=== PATIENT | female | born 1925 | race Caucasian/White ===

== ENCOUNTER 2017-01-11 09:27 | Inpatient (IN) | payer MEDICARE, BC ==
[~2017-01-11] VITALS: Ht 152.4 cm; Wt 59.6 kg
[2017-01-11] VITALS (12 sets, daily range): BP systolic 115–144; BP diastolic 57–74; PULSE 69–89; RESP 16–20; TEMP 96.9–98.9; O2SAT 80–100
[~2017-01-11 09:27] MED LIST: CARA1TAB2 PO; HYZA100T6 PO; PROT40TA PO; SIMV40TA PO; SYNT50TA PO
[2017-01-11 10:16] LABS: AUTOMATED NEUTROPHIL # 1.9 TH/MM3 (1.8-7.7); BASOPHIL % 0.5 % (0.0-2.0); EOSINOPHIL % 1.1 % (0.0-4.0); LYMPH % 26.4 % (9.0-44.0); LYMPHOCYTE # 0.8 TH/MM3 (1.0-4.8); MEAN CELL VOLUME 82.1 FL (80.0-100.0); MEAN CORPUSCULAR HEMOGLOBIN 26.1 PG (27.0-34.0); MEAN CORPUSCULAR HGB CONC 31.8 % (32.0-36.0); MONO % 10.1 % (0.0-8.0); NEUT % 61.9 % (16.0-70.0); PLATELET COUNT 147 TH/MM3 (150-450); RED BLOOD COUNT 2.05 MIL/MM3 (4.00-5.30); RED CELL DISTRIBUTION WIDTH 17.1 % (11.6-17.2); WHITE BLOOD COUNT 3.1 TH/MM3 (4.0-11.0)
--- NOTE | 2017-01-11 10:16 | PD ---
HPI Chief Complaint: Abnormal Results Time Seen by Provider: 09:37 Travel History International Travel<30 days: No Contact w/Intl Traveler<30days: No Traveled to known affect area: No History of Present Illness HPI 89 y/o female states she had an outpatient lab that showed her hemoglobin was 5. Her family states that she wasn't acting right and was concerned that her counts were low and this is why they had it checked. The patient denies any bleeding or history of bleeding. She denies any active complaints at this time. History is supplemented by records and family but limited. PFSH Past Medical History Cancer: No Cardiovascular Problems: Yes High Cholesterol: Yes Cerebrovascular Accident: Yes Endocrine: No Genitourinary: No Hypertension: Yes Immune Disorder: No Musculoskeletal: No Neurologic: No Psychiatric: No Reproductive: No Respiratory: No Tetanus Vaccination: Never Vaccinated Influenza Vaccination: No ?: Not Menopausal: Yes Past Surgical History Surgical History: No Previous Surgery Pacemaker: Yes Social History Alcohol Use: No Tobacco Use: No Substance Use: No Allergies-Medications (Allergen,Severity, Reaction): Coded Allergies: No Known Allergies (Unverified , 01/11/17) Reported Meds & Prescriptions Reported Meds & Active Scripts Active Reported Centrum Silver Women Tablet (Multivit-Min/Iron/Folic/Lutein) 1 Each Tablet 1 Tab PO DAILY Ecotrin Regular Strength (Aspirin) 325 Mg Tabdr 325 Mg PO DAILY PRN Zocor (Simvastatin) 20 Mg Tab 20 Mg PO HS Cozaar (Losartan Potassium) 25 Mg Tab 25 Mg PO DAILY Hyzaar (Losartan-Hydrochlorothiazide) 100-25 Mg Tab 1 Tab PO DAILY Levothyroxine (Levothyroxine Sodium) 50 Mcg Tab 50 Mcg PO DAILY Lopressor (Metoprolol Tartrate) 50 Mg Tab 50 Mg PO BID Review of Systems Except as stated in HPI: all other systems reviewed are Neg Physical Exam Narrative GENERAL: Well-nourished, well-developed patient. SKIN: Warm and dry. HEAD: Normocephalic and atraumatic. EYES: No injection or drainage. ENT: No nasal drainage noted. NECK: Supple, trachea midline. CARDIOVASCULAR: Regular rate and rhythm RESPIRATORY: No increased effort. No accessory muscle use. GASTROINTESTINAL: Abdomen soft, non-tender, nondistended. RECTAL EXAM: Performed with death clearance coordinator and after permission. No thrombosed external hemorrhoid or fissure, stool is brown, non-bloody. NEUROLOGICAL: Awake. Moves extremities. Normal speech. Data Data Last Documented VS Vital Signs Date Time Temp Pulse Resp B/P (MAP) Pulse Ox O2 Delivery O2 Flow Rate FiO2 01/11/17 09:42 77 17 130/60 (83) 100 Room Air 01/11/17 09:37 01/11/17 09:28 97.8 Orders Orders Red Blood Cells (Rbc) (01/11/17 09:37) Complete Blood Count With Diff (01/11/17 09:37) Basic Metabolic Panel (Bmp) (01/11/17 09:37) Act Partial Throm Time (Ptt) (01/11/17 09:37) Prothrombin Time / Inr (Pt) (01/11/17 09:37) Iv Access Insert/Monitor (01/11/17 09:37) Ecg Monitoring (01/11/17 09:37) Oximetry (01/11/17 09:37) Type And Screen (01/11/17 09:37) Electrocardiogram (01/11/17 ) Pantoprazole Inj (Protonix Inj) (01/11/17 10:30) Blood Product Administration .UPON TRANSFUSION (01/11/17 10:21) Sodium Chlor 0.9% 250 Ml Inj (Ns 250 Ml (01/11/17 10:30) Admit Order (Ed Use Only) (01/11/17 10:42) Labs Laboratory Tests Test 01/11/17 09:45 White Blood Count 3.1 TH/MM3 Red Blood Count 2.05 MIL/MM3 Hemoglobin 5.4 GM/DL Hematocrit 16.9 % Mean Corpuscular Volume 82.1 FL Mean Corpuscular Hemoglobin 26.1 PG Mean Corpuscular Hemoglobin Concent 31.8 % Red Cell Distribution Width 17.1 % Platelet Count 147 TH/MM3 Mean Platelet Volume 8.3 FL Neutrophils (%) (Auto) 61.9 % Lymphocytes (%) (Auto) 26.4 % Monocytes (%) (Auto) 10.1 % Eosinophils (%) (Auto) 1.1 % Basophils (%) (Auto) 0.5 % Neutrophils # (Auto) 1.9 TH/MM3 Lymphocytes # (Auto) 0.8 TH/MM3 Monocytes # (Auto) 0.3 TH/MM3 Eosinophils # (Auto) 0.0 TH/MM3 Basophils # (Auto) 0.0 TH/MM3 CBC Comment DIFF FINAL Differential Comment Prothrombin Time 10.7 SEC Prothromb Time International Ratio 1.0 RATIO Activated Partial Thromboplast Time 25.2 SEC Blood Urea Nitrogen 37 MG/DL Creatinine 1.46 MG/DL Random Glucose 137 MG/DL Calcium Level 8.8 MG/DL Sodium Level 139 MEQ/L Potassium Level 3.7 MEQ/L Chloride Level 106 MEQ/L Carbon Dioxide Level 23.6 MEQ/L Anion Gap 9 MEQ/L Estimat Glomerular Filtration Rate 34 ML/MIN MDM Medical Decision Making Medical Screen Exam Complete: Yes Emergency Medical Condition: Yes Medical Record Reviewed: Yes (past history confirmed, prior anemia and GI bleed visit noted with colon Lesion and path reviewed and noted) Interpretation(s) CBC & BMP Diagram 01/11/17 09:45 Calcium Level 8.8 Differential Diagnosis Gastritis, lab error, anemia Narrative Course Will check blood work and dose with Protonix and reevaluate Labs confirm anemia, will place for transfusion and admit [facility] Point of Care Internal Pos. & Neg. Controls: Passed Fecal Specimen Occult Blood: Positive Physician Communication Physician Communication dr ralph agrees to admit Diagnosis Primary Impression: Anemia Qualified Codes: D64.9 - Anemia, unspecified Additional Impression: GIB (gastrointestinal bleeding) Qualified Codes: K92.2 - Gastrointestinal hemorrhage, unspecified Admitting Information Admitting Physician Requests: Admit Glory Richard MD Jan 11, 2017 10:16
[2017-01-11 10:17] LABS: HEMO FLAGS DIFF FINAL
[2017-01-11 10:19] LABS: HEMATOCRIT 16.9 % (35.0-46.0)
[2017-01-11 10:22] LABS: APTT (PATIENT) 25.2 SEC (24.3-30.1); PROTHROMBIN TIME - PATIENT 10.7 SEC (9.8-11.6)
[2017-01-11] MEDS ORDERED: PANTOPRAZOLE SODIUM 40 MG VIAL IV PUSH ONE (10:30)
[2017-01-11] MEDS ORDERED: SODIUM CHLOR 0.9% 250 ML INJ 250 ML IV ONE (10:30)
[2017-01-11 10:35] LABS: BICARBONATE 23.6 MEQ/L (21.0-32.0); POTASSIUM 3.7 MEQ/L (3.5-5.1)
[2017-01-11] MEDS ORDERED: METO-309 PO (10:55)
[2017-01-11] MEDS ORDERED: HYZA100T6 PO (10:55)
[2017-01-11] MEDS ORDERED: MULT1TAB61 PO (10:55)
[2017-01-11] MEDS ORDERED: ZOCO20TA PO (10:55)
[2017-01-11] MEDS ORDERED: ASPI-146 PO (10:55)
[2017-01-11] MEDS ORDERED: COZA25TA PO (10:55)
[2017-01-11] MEDS ORDERED: LEVO50TA4 PO (10:55)
[2017-01-11] MEDS: SODIUM CHLOR 0.9% 1000 ML INJ 1,000 ML IV SCH ×2 (12:00→23:55)
--- NOTE | 2017-01-11 12:29 | PD.CONS ---
HPI History of Present Illness This is a 89 year old female who was sent to the ER for severe anemia with hemoglobin of 5 as outpatient. She has a significant family history for cancer - colon cancer in her brother and sister and another sister with breast cancer. She was seen for anemia in 2013 and evaluated with EGD/colonoscopy on (2013) and this revealed polyp in the gastric body, status post snare polypectomy , large polyp 5 cm or more, multilobed polyp in the proximal transverse colon, status post partial polypectomy with hot snare. Pathology revealed gastric antral mucosal biopsy with foveolar hyperplastic polyp, focal superficial erosion with polypoid granulation tissue and mild chronic active gastritis negative for intestinal metaplasia and dysplasia, stainer stain negative for Helicobacter. Benign acutely inflamed and fragmented villoglandular polyp in the transverse colon. She was then hospitalized in January of 2016 for severe anemia and was then evaluated with colonoscopy (02/01/16)----> diverticulum in the sigmoid colon, one-third circumferential mass was found in the transverse colon, multiple biopsies of the lesion were performed. 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 She has not since been seen in the office. The patient tells me that during her last hospitalization, she was told that she had a colon mass and that she did not want any surgery for this. She has not followed up with our office since her last hospitalization. She reports that she has been doing well with no decreased appetite, weight loss, nausea, vomiting, abdominal pain, change in bowels, constipation, diarrhea, melena, or hematochezia. She reports that she is moving her bowels without difficulty. She has been more tired than usual for 2 days and has been having leg cramps for the past 2 weeks. Discussed with patient further evaluation with EGD/Colonoscopy and the patient is refusing any further workup or treatment - other than blood transfusions. Discussed with patient and family concern that the bleeding could be coming from the colon mass or from her stomach. The patient verbalizes understanding but states she does not want to even have a procedure to control the bleeding and that she does not want any treatment of her colon mass. She is also interested in obtaining a DNR status and states that she does not want CPR or to be on the ventilator should her heart stop or if she stopped breathing. (Debbie Benoit) PFSH Past Medical History Anemia Gastric polyps Colon polyps Colon mass Hypertension Hyperlipidemia Hypothyroidism History of CVA Past Surgical History EGD/colonoscopy (Debbie Benoit) Coded Allergies: No Known Allergies (Unverified , 01/11/17) Medications Allergies Coded Allergies Type Severity Reaction Last Updated Verified No Known Allergies 01/11/17 No Active Scripts Medications Dose Route/Sig Max Daily Dose Days Date Category Centrum Silver Women Tablet (Multivit-Min/Iron/Folic/Lutein) 1 Each Tablet 1 Tab PO DAILY 01/11/17 Reported Ecotrin Regular Strength (Aspirin) 325 Mg Tabdr 325 Mg PO DAILY PRN 01/11/17 Reported Zocor (Simvastatin) 20 Mg Tab 20 Mg PO HS 01/11/17 Reported Cozaar (Losartan Potassium) 25 Mg Tab 25 Mg PO DAILY 01/11/17 Reported Hyzaar (Losartan-Hydrochlorothiazide) 100-25 Mg Tab 1 Tab PO DAILY 01/11/17 Reported Levothyroxine (Levothyroxine Sodium) 50 Mcg Tab 50 Mcg PO DAILY 01/11/17 Reported Lopressor (Metoprolol Tartrate) 50 Mg Tab 50 Mg PO BID 01/11/17 Reported Family History Mother from leukemia Father had a CVA Brother colon cancer Sister colon cancer Another sister breast cancer Social History No history of tobacco, illicit drug use, alcohol (Debbie Benoit) Review of Systems Constitutional: COMPLAINS OF: Fatigue, DENIES: Fever, Weight loss, Chills, Change in appetite Respiratory: DENIES: Cough, Shortness of breath Cardiovascular: DENIES: Chest pain, Palpitations Gastrointestinal: DENIES: Abdominal pain, Black stools, Bloody stools, Constipation, Diarrhea, Nausea, Vomiting, Anorexia, Swelling of Abdomen Musculoskeletal: COMPLAINS OF: Muscle aches Hematologic/lymphatic: DENIES: Bruising Neurologic: DENIES: Headache Psychiatric: DENIES: Confusion (Debbie Benoit) GI Exam Vitals I&O Vital Signs Date Time Temp Pulse Resp B/P (MAP) Pulse Ox O2 Delivery O2 Flow Rate FiO2 01/11/17 12:07 98.3 74 16 115/57 100 01/11/17 09:42 77 17 130/60 (83) 100 Room Air 01/11/17 09:41 100 Room Air 01/11/17 09:37 Room Air 01/11/17 09:28 97.8 78 20 136/58 (84) 100 Room Air Laboratory Test 01/11/17 09:45 White Blood Count 3.1 TH/MM3 Red Blood Count 2.05 MIL/MM3 Hemoglobin 5.4 GM/DL Hematocrit 16.9 % Mean Corpuscular Volume 82.1 FL Mean Corpuscular Hemoglobin 26.1 PG Mean Corpuscular Hemoglobin Concent 31.8 % Red Cell Distribution Width 17.1 % Platelet Count 147 TH/MM3 Mean Platelet Volume 8.3 FL Neutrophils (%) (Auto) 61.9 % Lymphocytes (%) (Auto) 26.4 % Monocytes (%) (Auto) 10.1 % Eosinophils (%) (Auto) 1.1 % Basophils (%) (Auto) 0.5 % Neutrophils # (Auto) 1.9 TH/MM3 Lymphocytes # (Auto) 0.8 TH/MM3 Monocytes # (Auto) 0.3 TH/MM3 Eosinophils # (Auto) 0.0 TH/MM3 Basophils # (Auto) 0.0 TH/MM3 CBC Comment DIFF FINAL Differential Comment Prothrombin Time 10.7 SEC Prothromb Time International Ratio 1.0 RATIO Activated Partial Thromboplast Time 25.2 SEC Blood Urea Nitrogen 37 MG/DL Creatinine 1.46 MG/DL Random Glucose 137 MG/DL Calcium Level 8.8 MG/DL Sodium Level 139 MEQ/L Potassium Level 3.7 MEQ/L Chloride Level 106 MEQ/L Carbon Dioxide Level 23.6 MEQ/L Anion Gap 9 MEQ/L Estimat Glomerular Filtration Rate 34 ML/MIN Physical Examination HEENT: Normocephalic; atraumatic; no jaundice. CHEST: CTA CARDIAC: RRR, systolic murmur ABDOMEN: Soft, nondistended, nontender; no hepatosplenomegaly; bowel sounds are present in all four quadrants. EXTREMITIES: No clubbing, cyanosis, or edema. SKIN: Generalized pallor SCI[employer] EDITOR: No focal deficits; alert and oriented times three. (Debbie Benoit) Assessment and Plan Plan ASSESSMENT: - Severe anemia in patient with known colon mass. Pt has been evaluated for anemia in past. EGD/colonoscopy on (10/21/2013) and this revealed polyp in the gastric body, status post snare polypectomy, large polyp 5 cm or more, multilobed polyp in the proximal transverse colon, status post partial polypectomy with hot snare. Pathology revealed gastric antral mucosal biopsy with foveolar hyperplastic polyp, focal superficial erosion with polypoid granulation tissue and mild chronic active gastritis negative for intestinal metaplasia and dysplasia, stainer stain negative for Helicobacter. Benign acutely inflamed and fragmented villoglandular polyp in the transverse colon. She was then hospitalized in January of 2016 for severe anemia and was then evaluated with colonoscopy (02/01/16)----> diverticulum in the sigmoid colon, one-third circumferential mass was found in the transverse colon, multiple biopsies of the lesion were performed. 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 She has not since been seen in the office. The patient tells me that during her last hospitalization, she was told that she had a colon mass and that she did not want any surgery for this. She has not followed up with our office since her last hospitalization. She is asymptomatic other than generalized weakness and leg cramps. She has not seen blood loss and is moving her bowels without difficulty. Refusing any further workup or treatment other than blood transfusions. Long discussion with family and patient. She does not want egd/colonoscopy and would like to made a DNR- states no CPR or mechanical ventilation. PPI, Transfuse. - Colon mass noted on last colonoscopy- did not want further workup or treatment. Suspicious for metastatic gastric vs. primary colon cancer. - FHx cancer. brother and sister with colon cancer. sister with breast cancer. - Hx CVA, HTN, Hyperlipidemia, hypothyroidism. PLAN: - Clear liquids - Agree with transfusion - PPI - DNR per patient and family request - Pt and family do not want to proceed further workup or treatment other than blood transfusion - PT seen and examined by Dr. Zhao and myself and this note is written on his behalf (Debbie Benoit) Physician Comments Seen and examined, plan as above, will follow up clinically after the transfusion. (Gonzales Zhao MD) Debbie Benoit Jan 11, 2017 12:29 Gonzales Zhao MD Jan 11, 2017 16:05
[2017-01-11 14:01] LABS: REVIEW FLAG FINAL
--- NOTE | 2017-01-11 14:47 | HHI.HP ---
HPI Service [facility] Primary Care Physician Channing Land DO Admission Diagnosis anemia Diagnoses: Chief Complaint: Fatigue Travel History International Travel<30 Days: No Contact w/Intl Traveler <30 Da: No Traveled to Known Affected Are: No History of Present Illness This is a pleasant 89-year-old elderly white female with significant past medical history of CVA, hypertension, hyperlipidemia, prior GI bleed. Patient indicates that on Monday she was feeling shaky and tremulous and family was concerned that her blood counts were not up therefore they called her PCP and outpatient lab work was ordered. Today, she was found with a hemoglobin of 5 and was sent to the hospital for further evaluation. Patient denies any chest pain, no shortness of breath. No recent fever, no chills. No blood in the stool, no hematemesis. Appetite has been okay, no nausea, no vomiting. She denies taking any aspirin. The emergency room, laboratory workup was done, she was found with hemoglobin of 5.4, hematocrit of 16.9. Platelets 147. Creatinine elevated 1.46, BUN 37. Hemoccult was positive. Patient is in the process of receiving blood. Patient has been admitted before for GI bleed, the last time was in 2016. Results show diverticulitis;, one third circumferential mass was found in the transverse colon, multiple biopsies of the lesion were performed. 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 She has been evaluated by gastroenterology and they have talked to pt and family. At this time they are refusing any further workup or treatment other than the blood transfusion. The family and patient were explained that the bleeding could be coming from a colon mass or from her stomach however at this time they would not agree to even have a procedure to control bleeding or to have treatment for the colon mass. Patient also requested a DO NOT RESUSCITATE. At this time, patient is resting comfortably, she has no complaints at this time. Patient is admitted for further evaluation and treatment. Review of Systems Constitutional: COMPLAINS OF: Fatigue, DENIES: Diaphoretic episodes, Fever, Weight gain, Weight loss, Chills, Dizziness, Change in appetite, Night Sweats Endocrine: DENIES: Abnorml menstrual pattern, Heat/cold intolerance, Polydipsia , Polyuria, Polyphagia Eyes: DENIES: Blurred vision, Diplopia, Eye inflammation, Eye pain, Vision loss , Photosensitivity, Double Vision Ears, nose, mouth, throat: DENIES: Tinnitus, Hearing loss, Vertigo, Nasal discharge, Oral lesions, Throat pain, Hoarseness, Ear Pain, Running Nose, Epistaxis, Sinus Pain, Toothache, Odynophagia Respiratory: DENIES: Apneas, Cough, Snoring, Wheezing, Hemoptysis, Sputum production, Shortness of breath Cardiovascular: DENIES: Chest pain, Palpitations, Syncope, Dyspnea on Exertion , PND, Lower Extremity Edema, Orthopnea, Claudication Gastrointestinal: DENIES: Abdominal pain, Black stools, Bloody stools, Constipation, Diarrhea, Nausea, Vomiting, Difficulty Swallowing, Anorexia Genitourinary: DENIES: Abnormal vaginal bleeding, Dysmenorrhea, Dyspareunia, Sexual dysfunction, Urinary frequency, Urinary incontinence, Urgency, Hematuria , Dysuria, Nocturia, Vaginal discharge Musculoskeletal: DENIES: Joint pain, Muscle aches, Stiffness, Joint Swelling, Back pain, Neck pain Integumentary: DENIES: Abnormal pigmentation, Pruritus, Rash, Nail changes, Breast masses, Breast skin changes, Nipple discharge Hematologic/lymphatic: DENIES: Bruising, Lymphadenopathy Immunologic/allergic: DENIES: Eczema, Urticaria Neurologic: DENIES: Abnormal gait, Headache, Localized weakness, Paresthesias, Seizures, Speech Problems, Tremor, Poor Balance Psychiatric: DENIES: Anxiety, Confusion, Mood changes, Depression, Hallucinations, Agitation, Suicidal Ideation, Homicidal Ideation, Delusions Past Family Social History Past Medical History 1. Hypertension. 2. Hyperlipidemia. 3. Hypothyroidism. 4. Remote history of stroke. 5. Previous admissions for GI bleed, last time was in 2016, found with diverticular bleed. 6. Aortic stenosis, EF of 55-60% per echo in 2016 Past Surgical History EGD/Colonoscopy 2016 Reported Medications Reported Meds & Active Scripts Active Reported Centrum Silver Women Tablet (Multivit-Min/Iron/Folic/Lutein) 1 Each Tablet 1 Tab PO DAILY Ecotrin Regular Strength (Aspirin) 325 Mg Tabdr 325 Mg PO DAILY PRN Zocor (Simvastatin) 20 Mg Tab 20 Mg PO HS Cozaar (Losartan Potassium) 25 Mg Tab 25 Mg PO DAILY Hyzaar (Losartan-Hydrochlorothiazide) 100-25 Mg Tab 1 Tab PO DAILY Levothyroxine (Levothyroxine Sodium) 50 Mcg Tab 50 Mcg PO DAILY Lopressor (Metoprolol Tartrate) 50 Mg Tab 50 Mg PO BID Allergies: Coded Allergies: No Known Allergies (Unverified , 01/11/17) Active Ordered Medications Inpatient Medications Levothyroxine Sodium (Synthroid) 50 mcg DAILY@0600 PO ; Start 01/12/17 at 06:00 Losartan Potassium (Cozaar) 25 mg DAILY PO ; Start 01/12/17 at 09:00 Metoprolol Tartrate (Lopressor) 50 mg BID PO ; Start 01/11/17 at 21:00 Pantoprazole Sodium (Protonix Inj) 40 mg Q24H IV PUSH ; Start 01/12/17 at 11:00 Pravastatin Sodium (Pravachol) 40 mg HS PO ; Start 01/11/17 at 21:00 Sodium Chloride 1,000 ml @ 84 mls/hr [id number] IV ; Start 01/11/17 at 12:00 Family History Father from stroke at the age of 96. Mother of leukemia in her mid 60s. Social History Patient is a , lives with daughter and son-in-law No smoking, no alcohol, no substance abuse Physical Exam Vital Signs Vital Signs Date Time Temp Pulse Resp B/P (MAP) Pulse Ox O2 Delivery O2 Flow Rate FiO2 01/11/17 14:30 96.9 80 18 144/68 (93) 80 01/11/17 14:12 73 18 127/61 (83) 98 01/11/17 12:30 98.9 69 17 135/62 99 01/11/17 12:07 98.3 74 16 115/57 100 01/11/17 09:42 77 17 130/60 (83) 100 Room Air 01/11/17 09:41 100 Room Air 01/11/17 09:37 Room Air 01/11/17 09:28 97.8 78 20 136/58 (84) 100 Room Air Physical Exam GENERAL: This is a well-nourished, well-developed patient, in no apparent distress. SKIN: Skin pale: Dry. HEAD: Atraumatic. Normocephalic. No temporal or scalp tenderness. EYES: Pupils equal round and reactive. Extraocular motions intact. No scleral icterus. No injection or drainage. ENT: Nose without bleeding, purulent drainage or septal hematoma. Throat without erythema, tonsillar hypertrophy or exudate. Uvula midline. Airway patent. NECK: Trachea midline. No JVD or lymphadenopathy. Supple, nontender, no meningeal signs. CARDIOVASCULAR: S1 and S2, has a murmur, 2/6. No rubs, no gallops. RESPIRATORY: Clear to auscultation. Breath sounds equal bilaterally. No wheezes , rales, or rhonchi. GASTROINTESTINAL: Abdomen soft, non-tender, nondistended. No hepato-splenomegaly , or palpable masses. No guarding. MUSCULOSKELETAL: Extremities without clubbing, cyanosis, or edema. No joint tenderness, effusion, or edema noted. No calf tenderness. Negative Homans sign bilaterally. NEUROLOGICAL: Awake, alert oriented 3. No focal deficits. Laboratory Laboratory Tests Test 01/11/17 09:45 White Blood Count 3.1 Red Blood Count 2.05 Hemoglobin 5.4 Hematocrit 16.9 Mean Corpuscular Volume 82.1 Mean Corpuscular Hemoglobin 26.1 Mean Corpuscular Hemoglobin Concent 31.8 Red Cell Distribution Width 17.1 Platelet Count 147 Mean Platelet Volume 8.3 Neutrophils (%) (Auto) 61.9 Lymphocytes (%) (Auto) 26.4 Monocytes (%) (Auto) 10.1 Eosinophils (%) (Auto) 1.1 Basophils (%) (Auto) 0.5 Neutrophils # (Auto) 1.9 Lymphocytes # (Auto) 0.8 Monocytes # (Auto) 0.3 Eosinophils # (Auto) 0.0 Basophils # (Auto) 0.0 CBC Comment DIFF FINAL Differential Comment Reticulocyte Count 4.0 Absolute Reticulocyte Count 81.8 Prothrombin Time 10.7 Prothromb Time International Ratio 1.0 Activated Partial Thromboplast Time 25.2 Blood Urea Nitrogen 37 Creatinine 1.46 Random Glucose 137 Calcium Level 8.8 Sodium Level 139 Potassium Level 3.7 Chloride Level 106 Carbon Dioxide Level 23.6 Anion Gap 9 Estimat Glomerular Filtration Rate 34 Iron Level 17 Result Diagram: 01/11/1745 01/11/1745 Caprini VTE Risk Assessment Caprini VTE Risk Assessment: Mod/High Risk (score >= 2) VTE Pharm Contraindication: High risk for bleeding Caprini Risk Assessment Model Point Value = 1 Point Value = 2 Point Value = 3 Point Value = 5 Age 41-60 Minor surgery BMI > 25 kg/m2 Swollen legs Varicose veins or History of unexplained or recurrent spontaneous Oral contraceptives or hormone replacement Sepsis (< 1 month) Serious lung disease, including pneumonia (< 1 month) Abnormal pulmonary function Acute myocardial infarction Congestive heart failure (< 1 month) History of inflammatory bowel disease Medical patient at bed rest Age 61-74 Arthroscopic surgery Major open surgery (> 45 min) Laparoscopic surgery (> 45 min) Malignancy Confined to bed (> 72 hours) Immobilizing plaster cast Central venous access Age >= 75 History of VTE Family history of VTE Factor V Leiden Prothrombin [id number] Lupus anticoagulant Anticardiolipin antibodies Elevated serum homocysteine Heparin-induced thrombocytopenia Other congenital or acquired thrombophilia Stroke (< 1 month) Elective arthroplasty Hip, pelvis, or leg fracture Acute spinal cord injury (< 1 month) Prophylaxis Regimen Total Risk Factor Score Risk Level Prophylaxis Regimen 0-1 Low Early ambulation 2 Moderate Order ONE of the following: *Sequential Compression Device (SCD) *Heparin 5000 units SQ BID 3-4 Higher Order ONE of the following medications: *Heparin 5000 units SQ TID *Enoxaparin/Lovenox 40 mg SQ daily (WT < 150 kg, CrCl > 30 mL/min) *Enoxaparin/Lovenox 30 mg SQ daily (WT < 150 kg, CrCl > 10-29 mL/min) *Enoxaparin/Lovenox 30 mg SQ BID (WT < 150 kg, CrCl > 30 mL/min) AND/OR *Sequential Compression Device (SCD) 5 or more Highest Order ONE of the following medications: *Heparin 5000 units SQ TID (Preferred with Epidurals) *Enoxaparin/Lovenox 40 mg SQ daily (WT < 150 kg, CrCl > 30 mL/min) *Enoxaparin/Lovenox 30 mg SQ daily (WT < 150 kg, CrCl > 10-29 mL/min) *Enoxaparin/Lovenox 30 mg SQ BID (WT < 150 kg, CrCl > 30 mL/min) AND *Sequential Compression Device (SCD) Assessment and Plan Problem List: (1) GIB (gastrointestinal bleeding) ICD Codes: K92.2 - GIB (gastrointestinal bleeding) Status: Acute (2) Anemia ICD Codes: D64.9 - Anemia, unspecified Status: Acute (3) HTN (hypertension) ICD Codes: I10 - Essential (primary) hypertension Status: Chronic (4) Aortic stenosis ICD Codes: I35.0 - Nonrheumatic aortic (valve) stenosis Status: Chronic (5) History of CVA (cerebrovascular accident) ICD Codes: Z86.73 - Personal history of transient ischemic attack (TIA), and cerebral infarction without residual deficits Status: Resolved (6) Hypothyroid ICD Codes: E03.9 - Hypothyroidism, unspecified Status: Chronic (7) Renal insufficiency ICD Codes: N28.9 - Disorder of kidney and ureter, unspecified (8) Mass of colon ICD Codes: K63.9 - Disease of intestine, unspecified Assessment and Plan Admit to Dr. Cerda 89-year-old elderly white female who presented to the emergency room with fatigue, was found with hemoglobin of 5. History of prior GI bleed and known colon mass. Symptomatically anemia Known colon mass, poss malignancy. -Continue with blood transfusion -Continue serial H&H -GI has been consulted, their input is appreciated. Patient family do not want to proceed with further workup, they are agreeable with -blood transfusion. -Continue PPI Valvular disease, aortic stenosis -Echo in 2016, EF 55-60%. -Stable, continue to monitor Renal insufficiency -Continue with IV fluids -BMP in the morning Hypertension -Continue home medication Hypothyroid -Continue with home Home medications reviewed, initiated as indicated SCDs for DVT prophylaxis PPI for GI prophylaxis Patient is a DNR, continue with symptomatic management. Patient and family do not want to proceed with any further workup or treatment. Plan of care has been discussed with the patient, attending and registered nurse. Further management of the patient will be dependent on the hospital course This patient was seen by myself and Dr. Cerda, this H&P is written on his behalf Physician Certification 2 Midnight Certification Type: Admission for Inpatient Services Order for Inpatient Services The services are ordered in accordance with Medicare regulations or non- Medicare payer requirements, as applicable. In the case of services not specified as inpatient-only, they are appropriately provided as inpatient services in accordance with the 2-midnight benchmark. Estimated LOS (days): 2 2 days is the estimated time the patient will need to remain in the hospital, assuming treatment plan goals are met and no additional complications. Post-Hospital Plan: Home Problem Qualifiers (1) GIB (gastrointestinal bleeding): Qualified Codes: K92.2 - Gastrointestinal hemorrhage, unspecified (2) Anemia: Qualified Codes: D64.9 - Anemia, unspecified (3) HTN (hypertension): Qualified Codes: I10 - Essential (primary) hypertension (4) Aortic stenosis: Qualified Codes: I35.0 - Nonrheumatic aortic (valve) stenosis Mary Grace Barnes Jan 11, 2017 14:47
[2017-01-11 15:04] LABS: FERRITIN 5 NG/ML (8-252); TRANSFERRIN IRON PROFILE 224 MG/DL (200-360)
--- NOTE | 2017-01-11 19:29 | EKG ---
Date Performed: 01/11/2017 Time Performed: 09:42:39 PTAGE: 89 years EKG: Sinus rhythm NORMAL ECG PREVIOUS TRACING : 01/31/2016 20.24 Compared to prior tracing no significant change DOCTOR: Madiha Collins Interpretating Date/Time 01/11/2017 19:28:03
[2017-01-11] MEDS: PRAVASTATIN SOD 40 MG TAB PO SCH (21:02)
[2017-01-11] MEDS: METOPROLOL TARTRATE 50 MG TAB PO SCH (21:02)
[2017-01-12] VITALS (10 sets, daily range): BP systolic 128–175; BP diastolic 60–84; PULSE 64–77; RESP 16–18; TEMP 96.3–98.8; O2SAT 95–97
[2017-01-12] MEDS: LEVOTHYROXINE SODIUM 50 MCG TAB PO SCH (06:51)
[2017-01-12 07:14] LABS: BICARBONATE 24.8 MEQ/L (21.0-32.0); POTASSIUM 3.6 MEQ/L (3.5-5.1)
[2017-01-12 07:17] LABS: HEMATOCRIT 22.6 % (35.0-46.0); MEAN CELL VOLUME 81.5 FL (80.0-100.0); MEAN CORPUSCULAR HEMOGLOBIN 27.7 PG (27.0-34.0); PLATELET COUNT 123 TH/MM3 (150-450); RED BLOOD COUNT 2.78 MIL/MM3 (4.00-5.30); REVIEW FLAG FINAL; WHITE BLOOD COUNT 3.4 TH/MM3 (4.0-11.0)
[2017-01-12] MEDS: METOPROLOL TARTRATE 50 MG TAB PO SCH ×2 (09:23→20:25)
[2017-01-12] MEDS: LOSARTAN 25 MG TAB PO SCH (09:23)
[2017-01-12] MEDS: SODIUM CHLOR 0.9% 1000 ML INJ 1,000 ML IV SCH ×2 (11:50→20:24)
--- NOTE | 2017-01-12 12:26 | HHI.PR ---
Subjective Remarks less fatigue no cp no sob hungry wants to eat no abd pain family at bsd pt. anxious to go home, doesn't want any procedures other than blood products (Mary Grace Barnes) Objective Objective Results - Vital Signs Date Time Temp Pulse Resp B/P (MAP) Pulse Ox O2 Delivery O2 Flow Rate FiO2 01/12/17 08:00 98.0 71 18 144/66 (92) 97 01/12/17 04:00 96.9 67 16 130/65 (86) 95 01/12/17 00:00 96.3 65 16 128/60 (82) 95 01/11/17 20:00 98.7 79 18 135/62 (86) 95 01/11/17 18:19 97.8 89 16 121/67 98 01/11/17 18:04 97.5 80 18 142/65 01/11/17 16:00 97.1 75 18 142/74 (96) 95 01/11/17 15:00 97.1 76 16 140/74 98 01/11/17 15:00 79 01/11/17 14:30 96.9 80 18 144/68 (93) 80 01/11/17 14:12 73 18 127/61 (83) 98 01/11/17 12:30 98.9 69 17 135/62 99 I/O 01/11/17 01/11/17 01/11/17 01/12/17 01/12/17 01/12/17 06:59 14:59 22:59 06:59 14:59 22:59 Intake Total 120 ml 850 ml Output Total 200 ml Balance 120 ml 650 ml Intake Oral 120 ml Packed Cells 500 ml Blood Product IV Normal Saline Flush 350 ml Output Urine Total 200 ml # Voids 0 1 3 (Mary Grace Barnes) Result Diagram: 01/12/17 0613 01/12/17 0613 Other Results Laboratory Tests Test 01/11/17 17:19 01/12/17 06:13 Hemoglobin 6.3 7.7 White Blood Count 3.4 Red Blood Count 2.78 Hematocrit 22.6 Mean Corpuscular Volume 81.5 Mean Corpuscular Hemoglobin 27.7 Mean Corpuscular Hemoglobin Concent 34.0 Red Cell Distribution Width 17.0 Platelet Count 123 Mean Platelet Volume 8.5 Blood Urea Nitrogen 30 Creatinine 1.28 Random Glucose 87 Calcium Level 8.8 Sodium Level 141 Potassium Level 3.6 Chloride Level 108 Carbon Dioxide Level 24.8 Anion Gap 8 Estimat Glomerular Filtration Rate 39 (Mary Grace Barnes) ROS General: Fatigue (better ) HEENT: No: Sore Throat, Dysphagia Cardiac: No: Chest Pain, Edema, Palpitations Pulmonary: No: Cough, SOB, Wheezing GI: No: Abdominal Pain, BM, Diarrhea, N/V /EDITOR MAP: No: Dysuria, Urgency Neuro/MS: No: Lightheaded, Confusion Psych: No: Anxiety, Depression Skin: No: Itching, Rash (Mary Grace Barnes) Physical Exam Physical Exam GENERAL: This is a well-nourished, well-developed patient, in no apparent distress. SKIN: Skin pale: Dry. HEAD: Atraumatic. Normocephalic. No temporal or scalp tenderness. EYES: Pupils equal round and reactive. Extraocular motions intact. No scleral icterus. No injection or drainage. ENT: Nose without bleeding, purulent drainage or septal hematoma. Throat without erythema, tonsillar hypertrophy or exudate. Uvula midline. Airway patent. NECK: Trachea midline. No JVD or lymphadenopathy. Supple, nontender, no meningeal signs. CARDIOVASCULAR: S1 and S2, has a murmur, 2/6. No rubs, no gallops. RESPIRATORY: Clear to auscultation. Breath sounds equal bilaterally. No wheezes , rales, or rhonchi. GASTROINTESTINAL: Abdomen soft, non-tender, nondistended. No hepato-splenomegaly , or palpable masses. No guarding. MUSCULOSKELETAL: Extremities without clubbing, cyanosis, or edema. No joint tenderness, effusion, or edema noted. No calf tenderness. Negative Homans sign bilaterally. NEUROLOGICAL: Awake, alert oriented 3. No focal deficits. (CameronMary Gracememe PRESTONP) Urinary Catheter: No (Mary Grace Barnes) Vascular Central Line Catheter: No (CameronMary Gracememe REECE) A/P Diagnosis: (1) GIB (gastrointestinal bleeding) ICD Codes: K92.2 - GIB (gastrointestinal bleeding) Status: Acute (2) Anemia ICD Codes: D64.9 - Anemia, unspecified Status: Acute (3) HTN (hypertension) ICD Codes: I10 - Essential (primary) hypertension Status: Chronic (4) Aortic stenosis ICD Codes: I35.0 - Nonrheumatic aortic (valve) stenosis Status: Chronic (5) History of CVA (cerebrovascular accident) ICD Codes: Z86.73 - Personal history of transient ischemic attack (TIA), and cerebral infarction without residual deficits Status: Resolved (6) Hypothyroid ICD Codes: E03.9 - Hypothyroidism, unspecified Status: Chronic (7) Renal insufficiency ICD Codes: N28.9 - Disorder of kidney and ureter, unspecified (8) Mass of colon ICD Codes: K63.9 - Disease of intestine, unspecified Assessment and Plan 89-year-old elderly white female who presented to the emergency room with fatigue, was found with hemoglobin of 5. History of prior GI bleed and known colon mass. Symptomatically anemia Known colon mass, poss malignancy. -Continue with blood transfusion -Continue serial H&H -GI has been consulted, their input is appreciated. Patient and family does not want to proceed with further workup, they are agreeable with -blood transfusion. -Continue PPI -Hgb 7.7, will give 2 units PRBC today, f/u CBC in am -adv diet Valvular disease, aortic stenosis -Echo in 2016, EF 55-60%. -Stable, continue to monitor Renal insufficiency -Continue with IV fluids -renal function improved Hypertension -Continue home medication Hypothyroid -Continue with home SCDs for DVT prophylaxis PPI for GI prophylaxis Patient is a DNR, continue with symptomatic management. Patient and family do not want to proceed with any further workup or treatment. Will repeat cbc in am poss discharge D/W RN D/W Dr. Cerda D/W pt and family This patient was seen by myself and Dr. Cerda, this H&P is written on his behalf (Mary Grace Barnes) Assessment and Plan pt is seen & examined d/w PT & her daughter at bedside pt is requesting conservative treatment d/t her advance age , she just wants to be comfortable. Risk were explained, "I am ready to doc".Her daughter agreed w her. will transfuse 1 morte U PRBC will give IV iron x 1 dose than po iron f/u H/H possible d/c home in am will f/u (Neftali Cerda MD) Problem Qualifiers (1) GIB (gastrointestinal bleeding): Qualified Codes: K92.2 - Gastrointestinal hemorrhage, unspecified (2) Anemia: Qualified Codes: D64.9 - Anemia, unspecified (3) HTN (hypertension): Qualified Codes: I10 - Essential (primary) hypertension (4) Aortic stenosis: Qualified Codes: I35.0 - Nonrheumatic aortic (valve) stenosis Mary Grace Barnes Jan 12, 2017 12:26 Neftali Cerda MD Jan 12, 2017 16:36
[2017-01-12] MEDS ORDERED: FUROSEMIDE 20 MG/2 ML VIAL IV ONE (12:30)
[2017-01-12] MEDS ORDERED: SODIUM CHLOR 0.9% 250 ML INJ 250 ML IV ONE (12:30)
[2017-01-12] MEDS: PANTOPRAZOLE SODIUM 40 MG VIAL IV PUSH SCH (14:00)
[2017-01-12] MEDS ORDERED: IRON SUCROSE 100 MG/5 ML VIAL IV PUSH ONE (15:30)
--- NOTE | 2017-01-12 16:37 | HHI.GIFU ---
Subjective Remarks Pt resting in bed, family at bedside. Feels better after blood transfusion, awaiting another. Still refuses endoscopy "i just want blood and i want to be left alone." (Denise Gonzalez) Objective Vitals I&O Vital Signs Date Time Temp Pulse Resp B/P (MAP) Pulse Ox O2 Delivery O2 Flow Rate FiO2 01/12/17 15:30 96.8 77 16 175/76 (109) 95 01/12/17 12:00 98.0 70 18 129/60 (83) 97 01/12/17 08:00 98.0 71 18 144/66 (92) 97 01/12/17 04:00 96.9 67 16 130/65 (86) 95 01/12/17 00:00 96.3 65 16 128/60 (82) 95 01/11/17 20:00 98.7 79 18 135/62 (86) 95 01/11/17 18:19 97.8 89 16 121/67 98 01/11/17 18:04 97.5 80 18 142/65 I/O 01/11/17 01/11/17 01/11/17 01/12/17 01/12/17 01/12/17 06:59 14:59 22:59 06:59 14:59 22:59 Intake Total 120 ml 850 ml 250 ml Output Total 200 ml Balance 120 ml 650 ml 250 ml Intake Oral 120 ml Packed Cells 500 ml Blood Product IV Normal Saline Flush 350 ml 250 ml Output Urine Total 200 ml # Voids 0 1 3 Laboratory Laboratory Tests Test 01/11/17 17:19 01/12/17 06:13 Hemoglobin 6.3 7.7 White Blood Count 3.4 Red Blood Count 2.78 Hematocrit 22.6 Mean Corpuscular Volume 81.5 Mean Corpuscular Hemoglobin 27.7 Mean Corpuscular Hemoglobin Concent 34.0 Red Cell Distribution Width 17.0 Platelet Count 123 Mean Platelet Volume 8.5 Blood Urea Nitrogen 30 Creatinine 1.28 Random Glucose 87 Calcium Level 8.8 Sodium Level 141 Potassium Level 3.6 Chloride Level 108 Carbon Dioxide Level 24.8 Anion Gap 8 Estimat Glomerular Filtration Rate 39 Physical Exam HEENT: PERRL; normocephalic; atraumatic; no jaundice. CHEST: CTA CARDIAC: RRR + murmur ABDOMEN: Soft, nondistended, nontender; no hepatosplenomegaly; bowel sounds are present in all four quadrants. EXTREMITIES: No clubbing, cyanosis, or edema. SKIN: Normal; no rash; no jaundice. WIRE PHOTO OPERATOR: No focal deficits; alert and oriented times three. (Denise Gonzalez) Assessment and Plan Plan ASSESSMENT: - Severe anemia in patient with known colon mass. Pt has been evaluated for anemia in past. EGD/colonoscopy on (10/21/2013) and this revealed polyp in the gastric body, status post snare polypectomy, large polyp 5 cm or more, multilobed polyp in the proximal transverse colon, status post partial polypectomy with hot snare. Pathology revealed gastric antral mucosal biopsy with foveolar hyperplastic polyp, focal superficial erosion with polypoid granulation tissue and mild chronic active gastritis negative for intestinal metaplasia and dysplasia, stainer stain negative for Helicobacter. Benign acutely inflamed and fragmented villoglandular polyp in the transverse colon. She was then hospitalized in January of 2016 for severe anemia and was then evaluated with colonoscopy (02/01/16)----> diverticulum in the sigmoid colon, one-third circumferential mass was found in the transverse colon, multiple biopsies of the lesion were performed. 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 She has not since been seen in the office. The patient tells me that during her last hospitalization, she was told that she had a colon mass and that she did not want any surgery for this. She has not followed up with our office since her last hospitalization. She is asymptomatic other than generalized weakness and leg cramps. She has not seen blood loss and is moving her bowels without difficulty. Refusing any further workup or treatment other than blood transfusions. Long discussion with family and patient. She does not want egd/colonoscopy and would like to made a DNR- states no CPR or mechanical ventilation. PPI, Transfuse. - Colon mass noted on last colonoscopy- did not want further workup or treatment. Suspicious for metastatic gastric vs. primary colon cancer. - FHx cancer. brother and sister with colon cancer. sister with breast cancer. - Hx CVA, HTN, Hyperlipidemia, hypothyroidism. PLAN: - PETER - Agree with transfusion - PPI - DNR per patient and family request - Pt and family do not want to proceed further workup or treatment other than blood transfusion - GI will s/o please reconsult if needed - PT seen and examined by Dr. Zhao and myself and this note is written on his behalf (Denise Gonzalez) Physician Comments Agree with the plan as above. Please notify us if needed. (Gonzales Zhao MD) Denise Gonzalez Jan 12, 2017 16:37 Gonzales Zhao MD Jan 13, 2017 06:34
[2017-01-12] MEDS: PRAVASTATIN SOD 40 MG TAB PO SCH (20:25)
[2017-01-12] MEDS: FERROUS SULFATE 325 MG (65 MG ELEMENTAL IRON) TAB PO SCH (20:25)
[2017-01-12] MEDS ORDERED: IRON SUCROSE INJ 100 MG in SODIUM CHLORIDE 0.9% INJ 100 ML IV ONE (21:00)
[2017-01-13] VITALS: BP 125/82; PULSE 68; RESP 16; TEMP 97; O2SAT 96
[2017-01-13 04:00] VITALS: BP 133/61; PULSE 63; RESP 16; TEMP 96.3; O2SAT 97
[2017-01-13] MEDS: LEVOTHYROXINE SODIUM 50 MCG TAB PO SCH (05:11)
[2017-01-13 08:00] VITALS: BP 141/73; PULSE 72; RESP 16; TEMP 96.7; O2SAT 97
[2017-01-13] MEDS: LOSARTAN 25 MG TAB PO SCH (08:07)
[2017-01-13] MEDS: METOPROLOL TARTRATE 50 MG TAB PO SCH (08:08)
[2017-01-13] MEDS: FERROUS SULFATE 325 MG (65 MG ELEMENTAL IRON) TAB PO SCH (08:08)
[2017-01-13] MEDS: PANTOPRAZOLE SODIUM 40 MG VIAL IV PUSH SCH (08:09)
[2017-01-13 08:24] LABS: HEMATOCRIT 29.8 % (35.0-46.0); MEAN CELL VOLUME 83.3 FL (80.0-100.0); MEAN CORPUSCULAR HEMOGLOBIN 26.9 PG (27.0-34.0); MEAN CORPUSCULAR HGB CONC 32.3 % (32.0-36.0); PLATELET COUNT 121 TH/MM3 (150-450); RED BLOOD COUNT 3.58 MIL/MM3 (4.00-5.30); RED CELL DISTRIBUTION WIDTH 16.7 % (11.6-17.2); REVIEW FLAG FINAL; WHITE BLOOD COUNT 3.7 TH/MM3 (4.0-11.0)
[2017-01-13 09:02] LABS: BICARBONATE 23.7 MEQ/L (21.0-32.0); POTASSIUM 3.4 MEQ/L (3.5-5.1)
[2017-01-13] MEDS: SODIUM CHLOR 0.9% 1000 ML INJ 1,000 ML IV SCH (11:40)
[2017-01-13] MEDS ORDERED: POTASSIUM CHLORIDE 25 MEQ EFFERVESCENT TAB PO ONE (11:45)
--- NOTE | 2017-01-13 12:20 | HHI.PR ---
Subjective Remarks sitting up in chair no fatigue ready to go very pleasant states she is ready to spent her last days with family and friends, continues to decline procedure except PRBC ([facility] Grace Barnes) Objective Objective Results - Vital Signs Date Time Temp Pulse Resp B/P (MAP) Pulse Ox O2 Delivery O2 Flow Rate FiO2 01/13/17 08:00 96.7 72 16 141/73 (95) 97 01/13/17 04:00 96.3 63 16 133/61 (85) 97 01/13/17 00:00 97.0 68 16 125/82 (96) 96 01/12/17 20:00 97.6 69 16 128/84 (99) 95 01/12/17 20:00 70 01/12/17 16:49 70 01/12/17 16:00 98.8 75 18 131/62 (85) 97 01/12/17 15:30 96.8 77 16 175/76 (109) 95 01/12/17 12:38 64 I/O 01/12/17 01/12/17 01/12/17 01/13/17 01/13/17 01/13/17 07:00 15:00 23:00 07:00 15:00 23:00 Intake Total 2240 ml Balance 2240 ml Intake Oral 1440 ml Packed Cells 250 ml Blood Product IV Normal Saline Flush 550 ml # Voids 3 5 1 (Mary Grace Barnes) Result Diagram: 01/13/17 0746 01/13/17 0746 Other Results Laboratory Tests Test 01/13/17 07:46 White Blood Count 3.7 Red Blood Count 3.58 Hemoglobin 9.6 Hematocrit 29.8 Mean Corpuscular Volume 83.3 Mean Corpuscular Hemoglobin 26.9 Mean Corpuscular Hemoglobin Concent 32.3 Red Cell Distribution Width 16.7 Platelet Count 121 Mean Platelet Volume 8.1 Blood Urea Nitrogen 21 Creatinine 1.13 Random Glucose 77 Calcium Level 8.5 Sodium Level 138 Potassium Level 3.4 Chloride Level 107 Carbon Dioxide Level 23.7 Anion Gap 7 Estimat Glomerular Filtration Rate 45 (Mary Grace Barnes) ROS General: No: Fatigue, Weakness HEENT: No: Sore Throat, Dysphagia Cardiac: No: Chest Pain, Edema, Palpitations Pulmonary: No: Cough, SOB, Wheezing GI: No: Abdominal Pain, BM, Diarrhea, N/V /[employer]: No: Dysuria, Urgency Neuro/MS: No: Lightheaded, Confusion Psych: No: Anxiety, Depression Skin: No: Itching, Rash (Mary Grace Barnes) Physical Exam Physical Exam GENERAL: This is a well-nourished, well-developed patient, in no apparent distress. SKIN: Skin pale: Dry. HEAD: Atraumatic. Normocephalic. No temporal or scalp tenderness. EYES: Pupils equal round and reactive. Extraocular motions intact. No scleral icterus. No injection or drainage. ENT: Nose without bleeding, purulent drainage or septal hematoma. Throat without erythema, tonsillar hypertrophy or exudate. Uvula midline. Airway patent. NECK: Trachea midline. No JVD or lymphadenopathy. Supple, nontender, no meningeal signs. CARDIOVASCULAR: S1 and S2, has a murmur, 2/6. No rubs, no gallops. RESPIRATORY: Clear to auscultation. Breath sounds equal bilaterally. No wheezes , rales, or rhonchi. GASTROINTESTINAL: Abdomen soft, non-tender, nondistended. No hepato-splenomegaly , or palpable masses. No guarding. MUSCULOSKELETAL: Extremities without clubbing, cyanosis, or edema. No joint tenderness, effusion, or edema noted. No calf tenderness. Negative Homans sign bilaterally. NEUROLOGICAL: Awake, alert oriented 3. No focal deficits. (Mary Grace Barnes) Urinary Catheter: No (Mary Grace Barnes) Vascular Central Line Catheter: No (Mary Grace Barnes) A/P Diagnosis: (1) GIB (gastrointestinal bleeding) ICD Codes: K92.2 - GIB (gastrointestinal bleeding) Status: Acute (2) Anemia ICD Codes: D64.9 - Anemia, unspecified Status: Acute (3) HTN (hypertension) ICD Codes: I10 - Essential (primary) hypertension Status: Chronic (4) Aortic stenosis ICD Codes: I35.0 - Nonrheumatic aortic (valve) stenosis Status: Chronic (5) History of CVA (cerebrovascular accident) ICD Codes: Z86.73 - Personal history of transient ischemic attack (TIA), and cerebral infarction without residual deficits Status: Resolved (6) Hypothyroid ICD Codes: E03.9 - Hypothyroidism, unspecified Status: Chronic (7) Renal insufficiency ICD Codes: N28.9 - Disorder of kidney and ureter, unspecified (8) Mass of colon ICD Codes: K63.9 - Disease of intestine, unspecified Assessment and Plan 89-year-old elderly white female who presented to the emergency room with fatigue, was found with hemoglobin of 5. History of prior GI bleed and known colon mass. Symptomatically anemia Known colon mass, poss malignancy. -Continue with blood transfusion -Continue serial H&H -GI has been consulted, their input is appreciated. Patient and family does not want to proceed with further workup, they are agreeable with -blood transfusion. -Continue PPI -S/P 4 units PRBC today, HH stable -adv diet -low iron stores, continue PO iron. Venofer also given yesterday Valvular disease, aortic stenosis -Echo in 2016, EF 55-60%. -Stable, continue to monitor Renal insufficiency -Continue with IV fluids -renal function improved Hypertension -Continue home medication Hypothyroid -Continue with home SCDs for DVT prophylaxis PPI for GI prophylaxis DNR status Hgb 9.6, less fatigue, improved stable for discharge f/u PCP diet-heart healthy activity-as tolerated D/W RN D/W Dr. Cerda D/W pt This patient was seen by myself and Dr. Cerda, this H&P is written on his behalf Discharge Planning 40 (Mary Grace Barnes) Assessment and Plan pt is seen & examined feels well/Eager to go home clinically stable d/c pt & her daughter at bedside d/w Mary Grace maguire w above d/c home f/u pcp (Neftali Cerda MD) Problem Qualifiers (1) GIB (gastrointestinal bleeding): Qualified Codes: K92.2 - Gastrointestinal hemorrhage, unspecified (2) Anemia: Qualified Codes: D64.9 - Anemia, unspecified (3) HTN (hypertension): Qualified Codes: I10 - Essential (primary) hypertension (4) Aortic stenosis: Qualified Codes: I35.0 - Nonrheumatic aortic (valve) stenosis Mary Grace Barnes Jan 13, 2017 12:20 Neftali Cerda MD Jan 13, 2017 13:21
[2017-01-13] MEDS ORDERED: FERR325T20 PO (12:22)
--- NOTE | 2017-01-13 12:23 | HHI.DCPOC ---
Discharge Care Plan Diagnosis: (1) Anemia (2) GIB (gastrointestinal bleeding) (3) Aortic stenosis (4) Renal insufficiency (5) HTN (hypertension) (6) Hypothyroid (7) History of CVA (cerebrovascular accident) (8) Mass of colon Your Health Problems Are: Difficulty with ADL Chest Pain Goals to Promote Your Health * To prevent worsening of your condition and complications * To maintain your health at the optimal level Directions to Meet Your Goals Take your medications as prescribed Follow your dietary instruction Follow activity as directed Keep your appointments as scheduled Take your immunizations and boosters as scheduled If your symptoms worsen call your PCP, if no PCP go to Urgent Care Center or Emergency Room Smoking is Dangerous to Your Health. Avoid second hand smoke Call the 24-hour hour crisis hotline for domestic abuse at [facility] Jan 13, 2017 12:23
--- NOTE | 2017-01-15 01:04 | HHI.DS ---
Discharge Summary Admission Date Jan 11, 2017 at 10:43 Discharge Date: Jan 13, 2017 Admitting Diagnosis anemia (1) GIB (gastrointestinal bleeding) ICD Codes: K92.2 - GIB (gastrointestinal bleeding) Status: Acute (2) Anemia ICD Codes: D64.9 - Anemia, unspecified Status: Acute (3) HTN (hypertension) ICD Codes: I10 - Essential (primary) hypertension Status: Chronic (4) Aortic stenosis ICD Codes: I35.0 - Nonrheumatic aortic (valve) stenosis Status: Chronic (5) History of CVA (cerebrovascular accident) ICD Codes: Z86.73 - Personal history of transient ischemic attack (TIA), and cerebral infarction without residual deficits Status: Resolved (6) Hypothyroid ICD Codes: E03.9 - Hypothyroidism, unspecified Status: Chronic (7) Renal insufficiency ICD Codes: N28.9 - Disorder of kidney and ureter, unspecified (8) Mass of colon ICD Codes: K63.9 - Disease of intestine, unspecified CBC/BMP: 01/13/17 0746 01/13/17 0746 Significant Findings Laboratory Tests Test 01/12/17 06:13 01/13/17 07:46 White Blood Count 3.4 TH/MM3 (4.0-11.0) 3.7 TH/MM3 (4.0-11.0) Red Blood Count 2.78 MIL/MM3 (4.00-5.30) 3.58 MIL/MM3 (4.00-5.30) Hemoglobin 7.7 GM/DL (11.6-15.3) 9.6 GM/DL (11.6-15.3) Hematocrit 22.6 % (35.0-46.0) 29.8 % (35.0-46.0) Platelet Count 123 TH/MM3 (150-450) 121 TH/MM3 (150-450) Blood Urea Nitrogen 30 MG/DL (7-18) 21 MG/DL (7-18) Creatinine 1.28 MG/DL (0.50-1.00) 1.13 MG/DL (0.50-1.00) Chloride Level 108 MEQ/L (98-107) Estimat Glomerular Filtration Rate 39 ML/MIN (>89) 45 ML/MIN (>89) Mean Corpuscular Hemoglobin 26.9 PG (27.0-34.0) Potassium Level 3.4 MEQ/L (3.5-5.1) Hospital Course This is a pleasant 89-year-old elderly white female with significant past medical history of CVA, hypertension, hyperlipidemia, prior GI bleed. Patient indicates that on Monday she was feeling shaky and tremulous and family was concerned that her blood counts were not up therefore they called her PCP and outpatient lab work was ordered. She was found with a hemoglobin of 5 and was sent to the hospital for further evaluation. Patient denied any chest pain, no shortness of breath. No recent fever, no chills. No blood in the stool, no hematemesis. Appetite had been okay, no nausea, no vomiting. She denied taking any aspirin. The emergency room, laboratory workup was done, she was found with hemoglobin of 5.4, hematocrit of 16.9. Platelets 147. Creatinine elevated 1.46, BUN 37. Hemoccult was positive. Patient had been admitted before for GI bleed, the last time was in 2016. Results showed diverticulitis; , one third circumferential mass was found in the transverse colon, multiple biopsies of the lesion were performed. 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 She was evaluated by gastroenterology and they talked to pt and family. They refused any further workup or treatment other than the blood transfusion. The family and patient were explained that the bleeding could be coming from a colon mass or from her stomach however at this time they would not agree to even have a procedure to control bleeding or to have treatment for the colon mass. Patient also requested a DO NOT RESUSCITATE. Patient was admitted for further evaluation and treatment for: (1) GIB (gastrointestinal bleeding) (2) Anemia (3) HTN (hypertension) (4) Aortic stenosis (5) History of CVA (cerebrovascular accident) (6) Hypothyroid (7) Renal insufficiency (8) Mass of colon During the hospital course, the following took place: 89-year-old elderly white female who presented to the emergency room with fatigue, was found with hemoglobin of 5. History of prior GI bleed and known colon mass. Symptomatically anemia Known colon mass, poss malignancy. -HH monitored -Given PRBC transfusion -GI was consulted, their input is appreciated. Patient and family did not want to proceed with further workup, they are agreeable with -blood transfusion. -Continue PPI -S/P 4 units PRBC today, HH stable -adv diet -tolerated well -low iron stores noted stated on PO iron. Venofer also given Valvular disease, aortic stenosis -Echo in 2016, EF 55-60%. -Stable, continue to monitor Renal insufficiency -Continue with IV fluids -renal function improved Hypertension -Continued home medication Hypothyroid -Continued with home SCDs for DVT prophylaxis PPI for GI prophylaxis DNR status Hgb 9.6, less fatigue, improved stable for discharge] Discharged home in stable condition. f/u PCP diet-heart healthy activity-as tolerated Pt Condition on Discharge: Stable Discharge Disposition: Discharge Home Discharge Instructions DIET: Follow Instructions for: Heart Healthy Diet Activities you can perform: Weight Bearing as Jonathan Follow up Referrals: PCP Follow-up New Medications: Ferrous Sulfate (Ferosul) 325 Mg Tablet 325 MG PO BID for ANEMIA for 30 Days, #60 TAB Continued Medications: Levothyroxine (Levothyroxine) 50 Mcg Tab 50 MCG PO DAILY for Thyroid, #30 TAB 0 Refills Losartan (Cozaar) 25 Mg Tab 25 MG PO DAILY for Blood Pressure Management, #30 TAB 0 Refills Losartan-Hydrochlorothiazide (Hyzaar) 100-25 Mg Tab 1 TAB PO DAILY for Blood Pressure Management, #30 TAB 0 Refills Metoprolol Tartrate (Lopressor) 50 Mg Tab 50 MG PO BID, #60 TAB 0 Refills Multivit-Min/Iron/Folic/Lutein (Centrum Silver Women Tablet) 1 Each Tablet 1 TAB PO DAILY for Nutritional Supplement Simvastatin (Zocor) 20 Mg Tab 20 MG PO HS for Cholesterol Management, #30 TAB 0 Refills Discontinued Medications: Aspirin DR (Ecotrin Regular Strength) 325 Mg Tabdr 325 MG PO DAILY PRN for MILD PAIN, #30 TAB 0 Refills Mary Grace Barnes Jan 15, 2017 01:04
== END 2017-01-13 15:18 | disposition home or self-care (01) | DRG 379 ==
LOC: NEPE 09:27 → NEDA 10:43 → HOCB 14:06
PROVIDERS: ADMIT Specialist; ATTEND Specialist
PROC: 30253N1 (ICD-10-PCS; principal; 2017-01-11)
DX: K92.2 Gastrointestinal hemorrhage, unspecified (principal); D64.9 Anemia, unspecified; I35.0 Nonrheumatic aortic (valve) stenosis; I10 Essential (primary) hypertension; E03.9 Hypothyroidism, unspecified; N28.9 Disorder of kidney and ureter, unspecified; Z86.73 Personal history of transient ischemic attack (TIA), and cerebral infarction without residual deficits; E78.5 Hyperlipidemia, unspecified; K63.9 Disease of intestine, unspecified; Z80.0 Family history of malignant neoplasm of digestive organs; Z80.3 Family history of malignant neoplasm of breast; Z86.010 Personal history of colon polyps; K31.7 Polyp of stomach and duodenum; Z66 Do not resuscitate
CPT/HCPCS: 36430; 76937; 80048; 82607; 82728; 82746; 83540; 83550; 85018; 85025; 85027; 85044; 85610; 85730; 86850; 86900; 86901; 86920; 93005; 96374; C9113; J1756; J7030; J7050; P9016